=== PATIENT | female | born 1935 | race Caucasian/White ===

== ENCOUNTER 2023-05-02 15:23 | Outpatient (CLI) | payer MEDICARE, SELFPAY ==
--- NOTE | ~2023-05-02 | MR_ITS ---
EXAMINATION: MR knee RT wo con DATE: 05/02/2023 16:40 INDICATION: Fall immediately post recent right total knee arthroplasty with audible pop and subsequen t pain and swelling TECHNIQUE: Magnetic resonance imaging (MRI) of the right knee was performed without intravenous contr ast. Sequences included coronal PD-weighted FSE, coronal PD-weighted FS FSE, sagittal T2-weighted FS E, sagittal PD-weighted FS FSE and axial PD weighted fat saturated FSE. COMPARISON: None. FINDINGS: Evaluation is significantly limited by the large amount of metallic magnetic field artifact associate d with the right total knee arthroplasty. There appears to be associated patellar resurfacing. Displa dylon patellar fracture with cephalad and lateral retraction of a large patellar fragment which is posi tioned along side the medial gutter of the suprapatellar pouch. There is tendinopathy of the quadrice ps tendon which is only incompletely visualized at the cephalad most margin of imaging. The fragment is positioned approximately 8 cm cephalad to the level of the joint line. The patellar component of t he arthroplasty presumed a still attached to a portion of the patella remains in a typical position o f the patella. There is a lax appearance to the visualized portions of the patellar tendon which appe ars thickened with increased signal consistent with additional tendinopathy. Associated tear of the l ateral patellar retinaculum. The stabilizing ligaments of the knee are unable to be assessed due to t he magnetic field artifact. There is a small knee joint effusion. Small region in the distal metadiap hyseal region of the femur with cluster of grape like pattern of low signal intensity which suggests chondroid matrix in the setting of an enchondroma. IMPRESSION: 1. Very limited evaluation of the right knee due to large amount of metallic magnetic field artifact associated with a right total knee arthroplasty with patellar resurfacing. 2. Periprosthetic patellar fracture with significant cephalad and lateral retraction of a portion of the patella. Patellar component appears to remain in a relatively expected position likely associated with a distal portion of the patella still attached to the patellar tendon. Would recommend further evaluation with either plain radiographs or CT. Reviewed, dictated and finalized at location A. [facility] NEUROLOGIST IMPRESSION: 1. Very limited evaluation of the right knee due to large amount of metallic ma gnetic field artifact associated with a right total knee arthroplasty with donaldson llar resurfacing. 2. Periprosthetic patellar fracture with significant cephalad and lateral retra ction of a portion of the patella. Patellar component appears to remain in a re latively expected position likely associated with a distal portion of the mehta la still attached to the patellar tendon. Would recommend further evaluation wi th either plain radiographs or CT.
== END 2023-05-02 15:24 | disposition home or self-care (01) ==
LOC: ANHIMG 15:40
PROVIDERS: PCP Pediatrics; Visit Provider Nurse Practitioner
DX: Z96.651 Presence of right artificial knee joint (principal)
CPT/HCPCS: 73721